=== PATIENT | female | born 1975 | race Caucasian/White ===

== ENCOUNTER 2021-05-17 09:11 | Day surgery (SDC) | payer MEDICAID ==
[2021-05-10 15:16] LABS: BASOPHILS # (AUTO) 0.1 X10'3 (0-0.2); BASOPHILS % (AUTO) 1.2 % (0-1); EOSINOPHILS # (AUTO) 0.4 X10'3 (0-0.9); EOSINOPHILS % (AUTO) 4.6 % (0-6); LYMPHOCYTES % (AUTO) 21.4 % (21-51); MEAN CORPUSCULAR HEMOGLOBIN 32.6 PG (27.0-31.0); MEAN CORPUSCULAR HGB CONC 34.4 g/dL (33.0-36.5); MEAN CORPUSCULAR VOLUME 94.9 FL (78-98); MONOCYTES # (AUTO) 0.6 X10'3 (0-0.9); MONOCYTES % (AUTO) 6.1 % (2-12); NEUTROPHILS # (AUTO) 6.3 X10'3 (1.8-7.7); NEUTROPHILS % (AUTO) 66.7 % (42-75); PRE OP HEMATOCRIT 45.2 % (35.0-45.0); PRE OP HEMOGLOBIN 15.5 g/dL (12.0-16.0); PRE OP PLATELET COUNT 246 X10'3 (140-440); RED BLOOD COUNT 4.76 X10'6 (4.20-5.60); RED CELL DISTRIBUTION WIDTH 13.3 % (11.5-14.5)
[2021-05-10 15:30] LABS: ALBUMIN 3.5 G/DL (3.4-5.0); ALBUMIN/GLOBULIN RATIO 0.9 (1.1-1.5); ALKALINE PHOSPHATASE 79 IU/L (46-116); BLOOD UREA NITROGEN 16 MG/DL (7-18); BUN/CREATININE RATIO 16.7 (6.6-38.0); CHLORIDE 103 MMOL/L (99-107); CREATININE 0.96 MG/DL (0.40-0.90); PRE OP ALT 43 U/L (30-65); PRE OP ANION GAP 10 (8-16); PRE OP AST 31 U/L (10-37); PRE OP BILIRUB, TOTAL 0.2 MG/DL (0.0-1.0); PRE OP GLUCOSE 91 MG/DL (70-104); PRE OP SODIUM 139 MMOL/L (135-145); TOTAL CARBON DIOXIDE 26.2 MMOL/L (24-32); TOTAL PROTEIN 7.4 G/DL (6.4-8.2); eGFR 62 ML/MIN
[2021-05-10 15:31] LABS: PRE OP POTASSIUM 4.1 MMOL/L (3.4-5.1)
[2021-05-10 15:33] LABS: CLARITY,URINE CLOUDY (Clear); COLOR,URINE YELLOW (Yellow); GLUCOSE, URINE NEGATIVE (Neg); KETONES,URINE NEGATIVE (Neg); LEUKOCYTE ESTERASE ,URINE MODERATE (Neg); NITRITES, URINE NEGATIVE (Neg); OCCULT BLOOD,URINE TRACE-INTACT (Neg); PROTEIN,URINE NEGATIVE (Neg); UROBILINOGEN,URINE 0.2 E.U/dL (0.2-1.0)
[2021-05-10 15:37] LABS: HCG SERUM QL NEGATIVE
[2021-05-10 15:41] LABS: UA COLLECTION TYPE CLN CATCH MIDSTREAM
[2021-05-10 15:42] LABS: HYALINE CASTS 0-3 /LPF (NEGATIVE); MUCUS STRANDS FEW /LPF (Neg); SQUAMOUS EPITHELIAL CELL,UR FEW /LPF (FEW)
[2021-05-10 15:43] LABS: BACTERIA,URINE 2+ /HPF (Neg); WBC,URINE 30-50 /HPF (0-4)
[2021-05-17] VITALS (15 sets, daily range): BP systolic 98–143; BP diastolic 59–108
[~2021-05-17] VITALS: Ht 177.8 cm; Wt 95.1 kg
[~2021-05-17 09:11] MED LIST: ARIP10TA57 PO; BUSP15TA7 PO; LISI10TA27 PO; OMEP-50 PO; PRAZ5CAP2 PO; TRAZ-256 PO; ceFOXitin 2GM-NS 100mL ADDvant 100 ML IV ONE; famotidine 20mg tablet PO ONE; ringers solution, lacted 1,000 ML IV SCH
[2021-05-17] MEDS ORDERED: ceFAZolin 1000mg inj ONE (09:15)
[2021-05-17] MEDS ORDERED: clindamycin phosphate 40gm vag cream ONE (09:15)
[2021-05-17] MEDS ORDERED: LIDOcaine 1% W/epiNEPHrine 1:100,000 20ml vial ONE (09:15)
[2021-05-17] MEDS ORDERED: BUPIVAcaine 0.5% inj/PF 30 ML ONE (09:16)
[2021-05-17] MEDS ORDERED: rocuronium 10mg/ml inj IV ONE (10:52)
[2021-05-17] MEDS ORDERED: propofol inj 20 ML IV ONE (10:52)
[2021-05-17] MEDS ORDERED: sevoflurane 250ml liquid IH ONE (10:53)
[2021-05-17] MEDS ORDERED: fentaNYL /PF 50mcg/ml 5ml ampule ONE (10:54)
[2021-05-17] MEDS ORDERED: midazolam 1 mg/ML 2ml injection ONE (10:54)
[2021-05-17] MEDS ORDERED: ondansetron/PF 4mg/2ml inj ONE (12:23)
[2021-05-17] MEDS ORDERED: dexamethasone sod phosphate 4mg/ml inj. ONE (12:23)
[2021-05-17] MEDS ORDERED: proCHLORperazine 10 MG/2 ml inj IV PRN (12:25)
[2021-05-17] MEDS ORDERED: ringers solution, lacted 1,000 ML IV SCH (12:25)
[2021-05-17] MEDS ORDERED: ketorolac trometh. 30mg/ml inj. IV ONE (12:25)
[2021-05-17] MEDS ORDERED: morphine 4 MG/ML inj SYRINge IV PRN (12:25)
[2021-05-17] MEDS ORDERED: meperidine/PF 25mg/ml syringe IV PRN ×3 (12:25)
[2021-05-17] MEDS ORDERED: ondansetron/PF 4mg/2ml inj IV PRN (12:25)
[2021-05-17] MEDS ORDERED: morphine 2 MG/ML inj. syringe IV PRN (12:25)
[2021-05-17] MEDS ORDERED: glycopyrrolate 0.2mg/ml inj ONE (12:54)
[2021-05-17] MEDS ORDERED: neostigmine methylsulfate 1 MG/ML 10ml vial ONE (12:54)
--- NOTE | 2021-05-17 13:08 | NUR ---
Received from OR via SURGICAL BED , accompanied by Anesthesiologist MARIA GUADALUPE and report given by Anesthesiolgist. PATIENT WITH 20G PIV IN LEFT HAND RUNNING LR AT 100. PATIENT WITH 3 LAP SITES TO ABDOME, THAT ARE ALL CDI AT THIS TIME. SONY PAD IN PLACE. 10L MASK ON WITH 100% SATURATIONSS AT THIS TIME.VSS. Addendum: 05/17/21 at 1316 by Filiberto Barlow RN, RN Amended: Links added.
[2021-05-17] MEDS ORDERED: oxyCODONE/APAP 5-325mg tablet PO PRN (13:10)
[2021-05-17] MEDS: oxyCODONE/APAP 5-325mg tablet PO PRN ×2 (13:55→18:00)
--- NOTE | 2021-05-17 18:38 | NUR ---
ALL DISCHARGE CRITERIA HAS BEEN MET. VSS, PAIN AT A TOLERABLE LEVEL, VOIDING AND ABLE TO SAFELY AMBULATE AND TRANSFER SELF. IV TAKEN OUT WITHOUT ANY COMPLICATIONS. ALL DISCHARGE INSTRUCTIONS COVERED WITH PATIENT AND ALL QUESTIONS ANSWERED. PATIENT TAKEN OUT VIA WHEELCHAIR TO PERSONAL VEHICLE WHERE FAMILY/FRIEND DROVE PATIENT HOME. ALL DC INSTRUCTIONS PROVIDED TO PATIENT AND BOYFRIEND. PATIENT HAD A SANCHEZ CATHETER PLACED BY PRUDENCE FROM SURGICAL FLOOR WITH ASSIST. PATIENT HAD A RETURN OF 700 CC URINE- CLEAR YELLOW. GIVEN DC INSTRUCTIONS ON SANCHEZ CATHETER CARE. WILL FOLLOW UP CALL PATIENT TOMORROW. Addendum: 05/17/21 at 1842 by Filiberto Barlow RN, RN Amended: Links added.
== END 2021-05-17 18:38 | disposition home or self-care (01) ==
LOC: PRE-OP 09:11
PROVIDERS: ATTEND Obstetrics & Gynecology
DX: N92.0 Excessive and frequent menstruation with regular cycle (principal); N39.3 Stress incontinence (female) (male); N83.202 Unspecified ovarian cyst, left side; N81.2 Incomplete uterovaginal prolapse; K21.9 Gastro-esophageal reflux disease without esophagitis; F41.9 Anxiety disorder, unspecified; F32.A Depression, unspecified; I10 Essential (primary) hypertension; B19.20 Unspecified viral hepatitis C without hepatic coma; E66.9 Obesity, unspecified; Z68.30 Body mass index [BMI] 30.0-30.9, adult; F17.210 Nicotine dependence, cigarettes, uncomplicated; F12.90 Cannabis use, unspecified, uncomplicated; F43.10 Post-traumatic stress disorder, unspecified; Z79.899 Other long term (current) drug therapy; Z20.822 Contact with and (suspected) exposure to COVID-19; Z88.8 Allergy status to other drugs, medicaments and biological substances; Z98.890 Other specified postprocedural states; Z98.51 Tubal ligation status; Z86.14 Personal history of Methicillin resistant Staphylococcus aureus infection
CPT/HCPCS: 36415; 57288; 58563; 58662; 71046; 80053; 81001; 82948; 84703; 85025; 86885; 86900; 86901; 87077; 87088; 87186; 93005; A6402; C1758; C1771; J0690; J0694; J1100; J1885; J2250; J2270; J2405; J2704; J2710; J3010; J3490; J7030; J7120; S0020; U0003; U0005; Z7506; Z7508; Z7512; A4355; A4618; A4649; A6258; A7000

== ENCOUNTER 2024-04-17 11:25 | Emergency (ER) | payer MEDICAID ==
[~2024-04-17] VITALS: Ht 175.3 cm; Wt 100.0 kg
[~2024-04-17 11:25] MED LIST changes: -ARIP10TA57 PO; +ARIP10TA87 PO; -OMEP-50 PO; +OMEP20CA16 PO; -ceFOXitin 2GM-NS 100mL ADDvant 100 ML IV ONE; -famotidine 20mg tablet PO ONE; -ringers solution, lacted 1,000 ML IV SCH
[2024-04-17 12:12] VITALS: BP 105/72; PULSE 78; RESP 16; O2SAT 97
[2024-04-17 15:42] LABS: BASOPHILS # (AUTO) 0.1 X10'3 (0-0.2); BASOPHILS % (AUTO) 1.3 % (0-1); EOSINOPHILS # (AUTO) 0.1 X10'3 (0-0.9); EOSINOPHILS % (AUTO) 1.5 % (0-6); HEMATOCRIT 43.4 % (35.0-45.0); HEMOGLOBIN 14.8 g/dl (12.0-16.0); LYMPHOCYTES % (AUTO) 20.1 % (21-51); MEAN CORPUSCULAR HEMOGLOBIN 32.9 PG (27.0-31.0); MEAN CORPUSCULAR HGB CONC 34.2 g/dL (33.0-36.5); MEAN CORPUSCULAR VOLUME 96.2 FL (78-98); MEAN PLATELET VOLUME 8.3 FL (7.4-10.4); MONOCYTES # (AUTO) 0.7 X10'3 (0-0.9); MONOCYTES % (AUTO) 6.9 % (2-12); NEUTROPHILS # (AUTO) 7.1 X10'3 (1.8-7.7); NEUTROPHILS % (AUTO) 70.2 % (42-75); PLATELET COUNT 280 X10'3 (140-440); RED BLOOD COUNT 4.51 X10'6 (4.20-5.60); RED CELL DISTRIBUTION WIDTH 14.1 % (11.5-14.5); WHITE BLOOD COUNT 10.1 X10'3 (4.5-11.0)
[2024-04-17 15:59] LABS: ALANINE AMINOTRANSFERASE 13 U/L (12-78); ALBUMIN 3.7 G/DL (3.4-5.0); ALBUMIN/GLOBULIN RATIO 0.9 (1.1-1.5); ALKALINE PHOSPHATASE 60 IU/L (46-116); ANION GAP 6 (8-16); ASPARTATE AMINO TRANSFERASE 10 U/L (10-37); BILIRUBIN,TOTAL 0.9 MG/DL (0.1-1.0); BLOOD UREA NITROGEN 18 MG/DL (7-18); BUN/CREATININE RATIO 16.1 (10.0-20.0); CALCIUM 9.5 MG/DL (8.5-10.1); CHLORIDE 106 MMOL/L (99-107); CREATININE 1.12 MG/DL (0.40-0.90); GLUCOSE 91 MG/DL (70-104); SODIUM 139 MMOL/L (135-145); TOTAL CARBON DIOXIDE 26.7 MMOL/L (24-32); TOTAL PROTEIN 7.6 G/DL (6.4-8.2); eCRCL 63 ML/MIN; eGFR 51 ML/MIN
[2024-04-17 16:03] LABS: POTASSIUM 4.2 MMOL/L (3.5-5.1)
[2024-04-17] MEDS ORDERED: iohexol 300mg/ml 100ml inj. ONE (16:10)
[2024-04-17] MEDS ORDERED: CLIN-97 PO (17:54)
[2024-04-17] MEDS: ketorolac trometh 15mg/ml vial 15 MG/ML ML IV ONE (18:20)
[2024-04-17 18:30] VITALS: TEMP 98.4
== END 2024-04-17 18:31 | disposition home or self-care (01) ==
LOC: ER 11:26
DX: L02.416 Cutaneous abscess of left lower limb (principal); Z88.8 Allergy status to other drugs, medicaments and biological substances
CPT/HCPCS: 36415; 72193; 80053; 85025; 99285; Q9967

== ENCOUNTER 2024-09-24 16:53 | Inpatient (IN) | payer MEDICAID ==
[~2024-09-24] VITALS: Ht 177.8 cm; Wt 100.3 kg
[~2024-09-24 16:53] MED LIST changes: +CLIN-97 PO
--- NOTE | 2024-09-24 17:24 | ELECTROCARDIOGRAPH REPORT ---
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 Chi Graham Measurements Intervals [place] Rate: 91 P: 65 WI: 185 QRS: 60 QRSD: 84 T: 42 QT: 349 QTc: 430 Interpretive Statements Sinus rhythm Probable left atrial enlargement Anteroseptal infarct, age indeterminate Electronically Signed On 09-24-2024 17:44:[address] Chi Graham Please click the below link to view image of tracing.
--- NOTE | 2024-09-24 17:25 | Physician Documentation ---
History of Present Illness ~ Chief Complaint: Abscess Stated Complaint: ABSCESS Time Seen by MD: 17:09 OK to notify your PCP?: Yes Source: patient, RN/MD, EMS, RN notes reviewed, EMS notes reviewed, old records Mode of Arrival: EMS Exam Limitations: no limitations HPI 48 year old female seen in bed 04 in the emergency department presents as a transfer from [place] via [facility] for complaints of an abscess. HPI from [place]: Ladonna is a 48 year old female with a history of hypertension, chronic methamphetamine use, bipolar disorder, and schizoaffective disorder and hepa titis C. 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 She presents this morning with complaints of medial thigh pain and swelling and thinks her infection is back. Symptoms onset yesterday, pain, swelling, fever, and headache. Denies any nausea., vomiting, diarrhea. She does endorse vaginal discharge. Denies any sexual activity for greater than one year. Denies any concerns for STDs. CT Pelvis w/ contrast: Impressions: Large abscess medial left thigh marking the increased in size since prior study. No evidence of abscess within the pelvis. CT Angio Chest: Impression: No CT evidence of pulmonary embolus. Minimal plueral effusions. Mild bibasilar subsegmental atelectasis. CT Head w/o contrast: Impressions: Unremarkable non enhanced computed tomograms of the head. Tetanus Within 5 Years: No Medication Reconciliation Allergies: Coded Allergies: codeine (Unverified Allergy, Mild, RASH, 09/24/24) carbamazepine (Verified Allergy, Unknown, RASH, 04/17/24) Scheduled Aripiprazole (Aripiprazole), 1 TAB PO DAILY, (Reported) Buspirone HCl (Buspirone HCl), 1 TAB PO BID, (Reported) Lisinopril (Lisinopril), 1 TAB PO DAILY, (Reported) Omeprazole (Omeprazole), 1 CAP PO DAILY, (Reported) Prazosin HCl (Prazosin HCl), 1 CAP PO HS, (Reported) Trazodone HCl (Trazodone HCl), 1 TAB PO HS, (Reported) Discontinued Medications Clindamycin HCL* (Clindamycin HCL*), 1 CAP PO Q6H Discontinued Reason: patient no longer taking Past Medical History Past Medical History: Migraine, Hypertension, Hepatitis C, UTI, Deep Vein Thro mbosis, Cellulitis, *PSYCH*, Depression, Schizophrenia Smoking Status: Current every day smoker Alcohol Use: Occasionally Drug Use: methamphetamine Review of Systems All Other Systems at this time: Reviewed and Negative ROS As stated above in the HPI, otherwise all systems are reviewed and negative. Physical Exam Vital Signs: RN Vital Signs have been reviewed: Yes, Temperature: 98.6, Source: Oral, Heart Rate: 92, Respiratory Rate: 16, BP: 130/85, Pulse Oximetry: 96, Weight: 90.910 Pulse Oximetry Reflects: adequate oxygenation Physical Exam General: The patient is well developed, well nourished, nontoxic appearing and is in no acute distress. Skin: [place], warm and dry with no rashes. HEENT: Head was normocephalic and atraumatic. Eyes - pupils equal, round, reactive to light and accommodation. Extraocular movements were intact. Conjunctivae were nonicteric. Ears - bilateral tympanic membranes were normal. The mouth and oropharynx were clear with moist mucous membranes. There were no pharyngeal exudates or erythema. Neck: Supple and nontender. There was no jugular venous distention, lymphadenopathy, thyromegaly or masses. Chest: Clear to auscultation bilaterally without wheezes, rales or rhonchi. No accessory muscle use. No dullness to percussion. Heart: Rate regular and rhythmic. S1, S2. No murmurs. Palpation of the chest wall was normal. No rubs or thrills. Abdomen: Soft, nontender and nondistended. Positive bowel sounds. No guarding or rebound. No hepatosplenomegaly or palpable masses. Extremities: Left thigh is red and hot. Post surgical reyes to left thigh. No cyanosis, clubbing or edema. The patient moves all extremities. Pulses were equal and symmetric. Neurologic: Cranial nerves II-XII were intact. Sensation was intact to light touch throughout. Motor strength was 5/5 in all four extremities. Deep tendon reflexes were intact in both upper and lower extremities. Psychologic: The patient was oriented to person, place and time. The patient demonstrated appropriate judgement and insight. Progress Progress Note 1730: A message was left with Dr. Cates about the patient. 1735: Dr. Duncan was informed on the patients case and kindly agreed to admission. Results/Orders Reviewed/noted all lab results: Yes Results/Orders Orders - DUNG DYER MD Electrocardiogram (09/24/24 17:13) Cbc/Diff (09/24/24 17:13) MG (09/24/24 17:13) Procalcitonin (09/24/24 17:13) Vancomycin/Ns 1 Gm Add-Serena (Vancomyc (09/24/24 17:15) BMP (09/24/24 17:13) Completed Orders - DUNG DYER MD Electrocardiogram (09/24/24 17:13) Normal Saline 1000ml (Sodium Chloride 10 (09/24/24 17:15) Medications Received in ER Medications (Trade) Dose Ordered Sig/Leia Route PRN Reason Start Time Stop Time Status Last Admin Dose Admin (sodium chloride 1000ml IV soln) 2,000 ml ONCE ONCE IV 09/24/24 17:15 09/24/24 17:16 DC 09/24/24 17:44 2,000 ML Vancomycin HCl 250 ml @ 166 mls/hr ONCE ONCE IV 09/24/24 17:15 09/24/24 18:45 09/24/24 17:44 166 MLS/HR Vital Signs 09/24/24 16:55 Temp 98.6 Pulse 92 Resp 16 B/P (MAP) 130/85 Pulse Ox 96 Laboratory Tests Test 09/24/24 17:50 Chemistry Comments Re-Evaluation Re-Evaluation : Re-Evaluation: Improved Progress Patient was seen and examined. Patient is given reassurance. The patient was transferred over [facility] area she has had multiple surgeries to the area. The initial etiology is unclear she does have a history of the methamphetamine abuse as mentioned prior denies any IV drug use. Patient's left thigh has multiple surgical scars. It is warm it is tender. She received a CAT scan that showed the 10 x 7.7 cm loculated mass. Patient's white count was elevated at 15 kidney functions are within normal limits at 0.8 patient received Rocephin and daptomycin. Upon arrival patient received vancomycin. Laboratory work was also redrawn. Including only one blood culture. Cultures were already obtained at the other facility. Patient later was then admitted to the hospitalist service for further workup and care. She states that she has been having fevers and feeling weak. She appears well otherwise. Continuous developmental writing instructor interpretation shows normal sinus rhythm heart rate 90s, no ectopy, normal, my interpretation. Pulse oximetry monitor interpretation shows normal oxygenation 96% room air, normal, my interpretation. 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 Dung Dyer Measurements Intervals [place] Rate: 91 P: 65 WI: 185 QRS: 60 QRSD: 84 T: 42 QT: 349 QTc: 430 Interpretive Statements Sinus rhythm Probable left atrial enlargement Anteroseptal infarct, age indeterminate Electronically Signed On 09-24-2024 17:44:[address] Dung Dyer Please click the below link to view image of tracing. EKG Date and Time:09/24/24 1723 Electronically Signed by: DUNG DYER MD Date and Time: 09/24/24 1744 Medical Decision Making Additional info obtained from: old records Differential Dx:Considerations: Include: Abscess, Bacteremia, Cellulitis, Gas gangrene, Lymphangitis, Osteromyelitis, Septicemia, Other Departure Time of Disposition: 17:35 Disposition: 09 ADMITTED INPATIENT Admitted to Inpatient Unit: yes, to hospitalist Admission Level of Care: Med/Surg with Tele Impression: Primary Impression: Abscess of left thigh Additional Impression: Sepsis Qualified Codes: A41.9 - Sepsis, unspecified organism Condition: Fair Referrals: NO PRIMARY CARE PROVIDER (PCP) Education Educated: Patient, Family Educated regarding: diagnosis, treatment, prognosis Critical Care Note Total Time (mins): 30 Critical Care Note The very real possibility of a deterioration of this patient's condition required the highest level of my preparedness for sudden, emergent intervention. I provided critical care services, which included medication orders, frequent reevaluations of the patient's condition and response to treatment, ordering and reviewing test results, and discussing the case with various consultants. Excludes time spent performing separately billable procedures. The critical care time associated with the care of the patient was 30 min Signature Scribe Signature: Scribed for Dung Dyer MD by Elida Sol . 09/24/24 17:40 Attestation: The note accurately reflects work and decisions made by me.Dung Dyer MD 09/24/24 17:25 DUNG DYER MD Sep 24, 2024 17:25 ELIDA BOOTH Sep 24, 2024 17:32
[2024-09-24] MEDS: normal saline 1000ML IV soln IV ONE (17:44)
[2024-09-24] MEDS: vancomycin/NS 1 GM ADD-VANTAGE 250 ML IV ONE (17:44)
[2024-09-24] MEDS ORDERED: HYDROcodone/acetaminophen 5mg/325mg tablet PO PRN (18:10)
[2024-09-24] MEDS ORDERED: magnesium sulf-water 4G/100mL 100 ML IV PRN (18:10)
[2024-09-24] MEDS ORDERED: magnesium sulf-water 2g/50mL 50 ML IV PRN (18:10)
[2024-09-24] MEDS ORDERED: magnesium Cl slow-release 64mg tablet PO PRN (18:10)
[2024-09-24] MEDS ORDERED: potassium Cl 40MEQ/1/2NS 520ml 520 ML IV PRN (18:10)
[2024-09-24] MEDS ORDERED: acetaminophen 325mg tablet PO PRN (18:10)
[2024-09-24] MEDS ORDERED: ondansetron/PF 4mg/2ml inj IV PRN (18:10)
--- NOTE | 2024-09-24 18:16 | HISTORY AND PHYSICAL ---
History & Physical Providers to CC ~ History of Present Illness Reason for Admit\Complaint: Left thigh abscess History of Present Illness 48 year old female trasferred from [facility] for evaluation of left thigh pain and swelling. Patient reports she has had multiple surgeries on this leg and it still keeps recurring . Patient is emotional and crying and states she is afraid of loosing her leg. Reports fever but did not check her temprature. Patient has a history of hypertension, chronic meth use, bipolar disorder and schizoaffective disorder. She denies having any vomiting but endorses nausea. Denies having any other symptoms including chest pain palpitations orthopnea PND ankle edema or any focal neurological signs. A CT scan of the pelvis with contrast done at [facility] revealed large abscess of the medial left thigh with maximum length of 11 cm and transfer dimension of 7.2 cm. There is multiloculated fluid collection. Dr. Vidal has been consulted by Dr. Dyer. Allergies: Coded Allergies: codeine (Unverified Allergy, Mild, RASH, 09/24/24) carbamazepine (Verified Allergy, Unknown, RASH, 04/17/24) Uncoded Allergies: ONIONS (Allergy, Intermediate, 09/25/24) Home Medications Home Medications Active Clindamycin HCL* (Clindamycin HCl) 300 Mg Capsule 1 Cap PO Q6H 10 Days Reported Buspirone HCl 15 Mg Tablet 1 Tab PO BID Omeprazole 20 Mg Capsule. 1 Cap PO DAILY Aripiprazole 10 Mg Tablet 1 Tab PO DAILY Lisinopril 10 Mg Tablet 1 Tab PO DAILY Prazosin HCl 5 Mg Capsule 1 Cap PO HS Trazodone HCl 100 Mg Tablet 1 Tab PO HS Past Medical History Past Medical History Hypertension Schizophrenia Bipolar disorder History of hep C Past Surgical History Surgical History Comment Patient reports she has had multiple surgeries on her left thigh Appendectomy Oophorectomy Tubal ligation Family History Family History: Patient reports no known family medical history. Past Social History Social History Comment Patient states she does not smoke drink or do any drugs Health Maintenance Health Maintenance Not current on her immunizations ROS ROS All other systems are reviewed and are negative except as mentioned in HPI Exam Vitals: Vital Signs Date Time Temp Pulse Resp B/P (MAP) Pulse Ox O2 Delivery O2 Flow Rate FiO2 09/24/24 16:55 98.6 92 16 130/85 96 General: Awake alert cooperative, emotional and crying HEENT: Normocephalic atraumatic pupils round reactive to light and accommodation, extraocular movements intact, sclera anicteric, conjunctiva pinkish, moist oral mucosa, no rash or ulcers. Neck: Supple, no JVD, trachea midline, no lymphadenopathy. Chest: Clear to auscultation, no wheezes crackles or rhonchi. Cardiovascular: Regular rate rhythm, no murmur gallop or rub. Abdomen: Soft nontender, no organomegaly. Extremities: No cyanosis clubbing , edema induration and tenderness of the left medial thigh noted Central Nervous System: Nonfocal. Moves all four extremities Musculoskeletal: No joint swelling or deformities noted. Skin: Erythema left leg ,well healed scar on the medical thigh Diagnostic Data Diagnostic Data: Reviewed CT report from [facility] Additional Plan 48 years old female with history of recurrent left thigh infection and prior multiple surgeries, presented initially to [facility] for increasing pain and swelling of the left thigh. * Left thigh abscess : Surgery has been consulted. Start on broad-spectrum IV antibiotics. * HTN: Patient is on lisinopril 20 mg and prazosin 1 mg p.o. daily which will be continued * Schizophrenia/bipolar disorder: Continue aripiprazole and buspirone * History of GERD: Continue omeprazole * Insomnia/depression: Continue trazodone * History of hep C: Review home medications and if patient is still on it we will continue sofosbuvir-velpatasvir. * Code status: She wishes to be full code * Expected length of stay - 3-4 days. Date of Service: Sep 24, 2024 Billing Provider: GABRIELLA KENNEDY MD Common Visit Codes: 65590-QTIOTRD INP/OBS CARE (HIGH) GABRIELLA KENNEDY MD Sep 24, 2024 18:16
[2024-09-24 18:35] LABS: ALBUMIN 2.7 G/DL (3.4-5.0); ANION GAP 9 (8-16); BLOOD UREA NITROGEN 4 MG/DL (7-18); CALCIUM 8.7 MG/DL (8.5-10.1); CHLORIDE 104 MMOL/L (99-107); GLUCOSE 104 MG/DL (70-104); MAGNESIUM 1.6 MG/DL (1.5-2.4); SODIUM 138 MMOL/L (135-145); TOTAL CARBON DIOXIDE 24.6 MMOL/L (24-32); eCRCL 91 ML/MIN; eGFR 76 ML/MIN
[2024-09-24 18:38] LABS: POTASSIUM 3.5 MMOL/L (3.5-5.1)
[2024-09-24] MEDS: HYDROmorphone/PF 0.2 MG/ML SYRINGE IV PRN (19:21)
[2024-09-24 20:00] LABS: BASOPHILS # (AUTO) 0.1 X10'3 (0-0.2); BASOPHILS % (AUTO) 0.4 % (0-1); EOSINOPHILS # (AUTO) 0.1 X10'3 (0-0.9); EOSINOPHILS % (AUTO) 0.4 % (0-6); HEMATOCRIT 36.8 % (35.0-45.0); HEMOGLOBIN 12.5 g/dl (12.0-16.0); LYMPHOCYTES # (AUTO) 1.4 X10'3 (1.1-4.8); MEAN CORPUSCULAR VOLUME 91.3 FL (78-98); MEAN PLATELET VOLUME 8.6 FL (7.4-10.4); MONOCYTES # (AUTO) 1.2 X10'3 (0-0.9); NEUTROPHILS # (AUTO) 11.1 X10'3 (1.8-7.7); NEUTROPHILS % (AUTO) 80.2 % (42-75); PLATELET COUNT 228 X10'3 (140-440); RED BLOOD COUNT 4.03 X10'6 (4.20-5.60); RED CELL DISTRIBUTION WIDTH 14.5 % (11.5-14.5); WHITE BLOOD COUNT 13.8 X10'3 (4.5-11.0)
[2024-09-24] MEDS: K and/or MAG REPLACEMENT MC SCH (20:00)
[2024-09-24 20:17] LABS: APTT 27 SECONDS (22-32); INR 1.1 INR; PROTHROMBIN TIME 10.9 SECONDS (9.0-12.0)
[2024-09-24] MEDS: normal saline 1000ml 1,000 ML IV SCH (22:11)
[2024-09-24 22:30] VITALS: BP 129/82; RESP 20; TEMP 99.7; O2SAT 94
[2024-09-24] MEDS: HYDROcodone/acetaminophen 10/325mg tab PO PRN (22:51)
[2024-09-24 23:30] VITALS: RESP 20; O2SAT 98
[2024-09-25] VITALS (7 sets, daily range): BP systolic 113–145; BP diastolic 58–89; PULSE 93–108; RESP 16–20; TEMP 98–99.6; O2SAT 93–98
[2024-09-25] MEDS: piperacillin/tazo 3.375gm/50ml 50 ML IV ONE (00:12)
[2024-09-25] MEDS: piperacillin/tazo 3.375gm/50ml 50 ML IV SCH (00:26)
[2024-09-25] MEDS: HYDROmorphone inj. 0.5 MG/0.5 ML DISP.SYRIN IV PRN (03:32)
[2024-09-25 05:25] LABS: BASOPHILS % (AUTO) 0.2 % (0-1); EOSINOPHILS % (AUTO) 0.3 % (0-6); HEMOGLOBIN 11.8 g/dl (12.0-16.0); LYMPHOCYTES # (AUTO) 1.1 X10'3 (1.1-4.8); LYMPHOCYTES % (AUTO) 8.4 % (21-51); MEAN CORPUSCULAR HEMOGLOBIN 30.6 PG (27.0-31.0); MEAN CORPUSCULAR HGB CONC 33.7 g/dL (33.0-36.5); MEAN CORPUSCULAR VOLUME 90.9 FL (78-98); MEAN PLATELET VOLUME 8.3 FL (7.4-10.4); MONOCYTES # (AUTO) 1.2 X10'3 (0-0.9); MONOCYTES % (AUTO) 9.1 % (2-12); NEUTROPHILS # (AUTO) 11.1 X10'3 (1.8-7.7); PLATELET COUNT 209 X10'3 (140-440); RED BLOOD COUNT 3.85 X10'6 (4.20-5.60); WHITE BLOOD COUNT 13.5 X10'3 (4.5-11.0)
[2024-09-25] MEDS: potassium Cl 20 mEq SR tablet PO STA (06:05)
[2024-09-25] MEDS: VANCOmycin 1250MG/NS 250ml Bag 250 ML IV SCH (06:50)
[2024-09-25] MEDS: lisinopril 10 MG tablet PO SCH (07:56)
[2024-09-25] MEDS: aripiprazole 10MG tablet PO SCH (07:56)
[2024-09-25] MEDS: busPIRone 15mg tablet PO SCH (07:56)
[2024-09-25] MEDS: pantoprazole 40mg Tablet.DR PO SCH (07:56)
[2024-09-25 08:52] LABS: ALBUMIN 2.5 G/DL (3.4-5.0); ANION GAP 10 (8-16); BLOOD UREA NITROGEN 4 MG/DL (7-18); BUN/CREATININE RATIO 5.6 (10.0-20.0); CALCIUM 8.6 MG/DL (8.5-10.1); CHLORIDE 103 MMOL/L (99-107); CREATININE 0.71 MG/DL (0.40-0.90); GLUCOSE 90 MG/DL (70-104); MAGNESIUM 1.5 MG/DL (1.5-2.4); SODIUM 138 MMOL/L (135-145); TOTAL CARBON DIOXIDE 24.9 MMOL/L (24-32); eCRCL 103 ML/MIN; eGFR 87 ML/MIN
[2024-09-25 08:59] LABS: POTASSIUM 2.9 MMOL/L (3.5-5.1)
--- NOTE | 2024-09-25 09:05 | PROGRESS NOTE ---
Progress Note ID Providers to CC ~ Progress Note Progress Note: pt needs drain per TRAE RONQUILLO MD Sep 25, 2024 09:05
[2024-09-25] MEDS: potassium Cl 20 mEq SR tablet PO PRN (10:31)
--- NOTE | 2024-09-25 17:37 | PROGRESS NOTE ---
Daily Progress Note Providers to CC ~ Antibiotic Timeout Antibiotic Ordered?: Yes Subjective No new complaints, continues to have pain Objective Vital Signs Date Time Temp Pulse Resp B/P (MAP) Pulse Ox O2 Delivery O2 Flow Rate FiO2 09/25/24 14:05 16 09/25/24 10:10 98.1 105 113/86 (95) 95 Room Air Result Diagram: 09/25/24 0505 09/25/24 0800 Awake alert cooperative in no acute distress HEENT normocephalic atraumatic extraocular movements are intact Neck supple, no JVD Chest: Clear to auscultation, no wheezes or rhonchi Heart regular rate rhythm, no murmur or gallop rub Abdomen is soft nontender no organomegaly Extremities no cyanosis clubbing, edema of the left medial thigh with tenderness and induration noted. Neuro exam nonfocal Coagulation Studies Laboratory Tests Test 09/24/24 19:45 Prothrombin Time 10.9 SECONDS (9.0-12.0) INR International Normalized Ratio 1.1 INR Activated Partial Thromboplast Time 27 SECONDS (22-32) Coagulation Comments Other Results Medications reviewed Problem\Assessment\Plan 48 years old female with history of recurrent left thigh infection and prior multiple surgeries, presented initially to [facility] for increasing pain and swelling of the left thigh. * Left thigh abscess : Surgery has been consulted. Dr. Vidal recommneds IR consult, continue IV antibiotics. Requested RN to initiate tranfer to [facility]. Per my discussion with the rehabilitation case coordinator, since the IR department is closed on the weekends at [facility], this will be initiated in a.m.. * HTN: Continue lisinopril 20 mg and prazosin 1 mg p.o. * Schizophrenia/bipolar disorder: Continue aripiprazole and buspirone * History of GERD: Continue omeprazole * Insomnia/depression: Continue trazodone * History of hep C: Has been treated with sofosbuvir-velpatasvir. Deferred to outpatient follow up. * Code status: She wishes to be full code * Expected length of stay 2-3 days Date of Service: Sep 26, 2024 Billing Provider: GABRIELLA KENNEDY MD Common Visit Codes: 97517-KRPLPSCINA INP/OBS CARE(HIGH) GABRIELLA KENNEDY MD Sep 25, 2024 17:36
[2024-09-25] MEDS: traZODone 50mg tablet PO SCH (19:41)
[2024-09-25] MEDS: prazosin 5mg capsule PO SCH (19:41)
[2024-09-26] MEDS: VANCOMYCIN LEVEL IV ONE (05:57)
[2024-09-26 06:00] VITALS: BP 94/73; PULSE 110; RESP 19; TEMP 98.5; O2SAT 94
[2024-09-26 06:32] LABS: BASOPHILS % (AUTO) 0.2 % (0-1); EOSINOPHILS % (AUTO) 0.3 % (0-6); HEMATOCRIT 33.4 % (35.0-45.0); HEMOGLOBIN 11.3 g/dl (12.0-16.0); LYMPHOCYTES # (AUTO) 0.8 X10'3 (1.1-4.8); LYMPHOCYTES % (AUTO) 5.9 % (21-51); MEAN CORPUSCULAR HEMOGLOBIN 30.5 PG (27.0-31.0); MEAN CORPUSCULAR HGB CONC 33.7 g/dL (33.0-36.5); MEAN CORPUSCULAR VOLUME 90.4 FL (78-98); MEAN PLATELET VOLUME 8.2 FL (7.4-10.4); MONOCYTES # (AUTO) 1.3 X10'3 (0-0.9); MONOCYTES % (AUTO) 9.2 % (2-12); NEUTROPHILS # (AUTO) 12.1 X10'3 (1.8-7.7); NEUTROPHILS % (AUTO) 84.4 % (42-75); PLATELET COUNT 214 X10'3 (140-440); RED CELL DISTRIBUTION WIDTH 14.4 % (11.5-14.5); WHITE BLOOD COUNT 14.3 X10'3 (4.5-11.0)
[2024-09-26 06:50] LABS: ALBUMIN 2.3 G/DL (3.4-5.0); ANION GAP 11 (8-16); BLOOD UREA NITROGEN 3 MG/DL (7-18); BUN/CREATININE RATIO 3.5 (10.0-20.0); CALCIUM 8.6 MG/DL (8.5-10.1); CHLORIDE 102 MMOL/L (99-107); CREATININE 0.85 MG/DL (0.40-0.90); GLUCOSE 119 MG/DL (70-104); MAGNESIUM 1.5 MG/DL (1.5-2.4); POTASSIUM 3.5 MMOL/L (3.5-5.1); SODIUM 136 MMOL/L (135-145); TOTAL CARBON DIOXIDE 23.1 MMOL/L (24-32); VANCOMYCIN,TROUGH 8.4 ug/mL (10.0-20.0); eCRCL 86 ML/MIN; eGFR 71 ML/MIN
[2024-09-26 07:20] VITALS: RESP 19; O2SAT 94
[2024-09-26 10:00] VITALS: BP 109/59; PULSE 70; RESP 19; TEMP 98.1; O2SAT 93
[2024-09-26] MEDS ORDERED: vancomycin/NS 1 GM ADD-VANTAGE 250 ML IV SCH (15:00)
[2024-09-26] MEDS ORDERED: SOFO1TAB3 PO (17:24)
[2024-09-26] MEDS: vancomycin/NS 1 GM ADD-VANTAGE 250 ML IV SCH (17:35)
[2024-09-26 18:00] VITALS: BP 138/88; PULSE 108; RESP 15; TEMP 98.9; O2SAT 93
[2024-09-26] MEDS: aripiprazole 10MG tablet PO SCH (21:08)
[2024-09-26 22:00] VITALS: BP 145/74; PULSE 110; RESP 18; TEMP 98.2; O2SAT 96
[2024-09-27 06:00] VITALS: BP 119/75; PULSE 114; RESP 18; TEMP 100.4; O2SAT 93
[2024-09-27 06:08] LABS: BASOPHILS % (AUTO) 0.3 % (0-1); EOSINOPHILS % (AUTO) 0.3 % (0-6); HEMATOCRIT 30.9 % (35.0-45.0); HEMOGLOBIN 10.5 g/dl (12.0-16.0); LYMPHOCYTES # (AUTO) 0.9 X10'3 (1.1-4.8); LYMPHOCYTES % (AUTO) 6.8 % (21-51); MEAN CORPUSCULAR HGB CONC 34.1 g/dL (33.0-36.5); MEAN CORPUSCULAR VOLUME 90.9 FL (78-98); MEAN PLATELET VOLUME 8.4 FL (7.4-10.4); MONOCYTES # (AUTO) 1.1 X10'3 (0-0.9); MONOCYTES % (AUTO) 8.4 % (2-12); NEUTROPHILS # (AUTO) 11.3 X10'3 (1.8-7.7); NEUTROPHILS % (AUTO) 84.2 % (42-75); PLATELET COUNT 215 X10'3 (140-440); RED BLOOD COUNT 3.39 X10'6 (4.20-5.60); WHITE BLOOD COUNT 13.4 X10'3 (4.5-11.0)
[2024-09-27 06:19] LABS: ANION GAP 11 (8-16); BLOOD UREA NITROGEN 3 MG/DL (7-18); BUN/CREATININE RATIO 3.9 (10.0-20.0); CALCIUM 8.7 MG/DL (8.5-10.1); CHLORIDE 105 MMOL/L (99-107); CREATININE 0.76 MG/DL (0.40-0.90); GLUCOSE 103 MG/DL (70-104); MAGNESIUM 1.6 MG/DL (1.5-2.4); POTASSIUM 3.1 MMOL/L (3.5-5.1); SODIUM 141 MMOL/L (135-145); TOTAL CARBON DIOXIDE 25.1 MMOL/L (24-32); eCRCL 96 ML/MIN; eGFR 81 ML/MIN
[2024-09-27 08:10] VITALS: RESP 18; O2SAT 93
[2024-09-27] MEDS: potassium Cl 20 mEq SR tablet PO PRN ×2 (08:26→21:20)
[2024-09-27 10:00] VITALS: BP 105/65; PULSE 98; RESP 16; TEMP 97.9; O2SAT 95
[2024-09-27] MEDS: piperacillin/tazo 3.375gm/50ml 50 ML IV SCH (12:43)
[2024-09-27] MEDS: VANCOMYCIN LEVEL IV ONE (16:30)
[2024-09-27 17:00] VITALS: BP 134/76; PULSE 97; RESP 19; TEMP 97.3; O2SAT 95
--- NOTE | 2024-09-27 18:50 | PROGRESS NOTE ---
Daily Progress Note Providers to CC ~ Antibiotic Timeout Antibiotic Ordered?: Yes Subjective Patient was seen in her room in presence of nursing staff Vidhya patient was not happy that she is getting vancomycin instead of ampicillin. She mentioned in past provider told her to take ampicillin for this kind of abscess. Her old record requested. As per Vidhya patient needs hepatitis-C medication prescription. Reviewed patient's old records and no culture reports available . Objective Vital Signs Date Time Temp Pulse Resp B/P (MAP) Pulse Ox O2 Delivery O2 Flow Rate FiO2 09/27/24 10:00 97.9 98 16 105/65 (78) 95 Room Air Result Diagram: 09/27/24 0515 09/27/24 0515 Coagulation Studies Laboratory Tests Test 09/24/24 19:45 Prothrombin Time 10.9 SECONDS (9.0-12.0) INR International Normalized Ratio 1.1 INR Activated Partial Thromboplast Time 27 SECONDS (22-32) Coagulation Comments Problem\Assessment\Plan 48 years old female with history of recurrent left thigh infection and prior multiple surgeries, presented initially to [facility] for increasing pain and swelling of the left thigh. * Left thigh abscess : Surgery has been consulted. Dr. Vidal recommneds IR consult, continue IV antibiotics. Left thigh abscess drainage done by IR on coming Friday * HTN: Continue lisinopril 20 mg and prazosin 1 mg p.o. * Schizophrenia/bipolar disorder: Continue aripiprazole and buspirone * History of GERD: Continue omeprazole * Insomnia/depression: Continue trazodone * History of hep C: Has been treated with sofosbuvir-velpatasvir. Deferred to outpatient follow up. * Code status: She wishes to be full code * Expected length of stay 2-3 days * Hypokalemia we will do the replacement of potassium as per protocol Patient's current condition is guarded we will continue to follow patient in AM . Date of Service: Sep 27, 2024 Billing Provider: STEPHAN PALM MD Common Visit Codes: [id number] INP/OBS CARE(HIGH) STEPHAN PALM MD Sep 27, 2024 18:50
[2024-09-27] MEDS: polyethylene glycol 3350 17gm powd pack PO SCH (20:15)
[2024-09-27] MEDS ORDERED: magnesium sulf-water 4G/100mL 100 ML IV PRN (20:35)
[2024-09-27] MEDS ORDERED: potassium Cl 40MEQ/1/2NS 520ml 520 ML IV PRN (20:35)
[2024-09-27] MEDS ORDERED: potassium Cl 20 mEq SR tablet PO PRN (20:35)
[2024-09-27] MEDS ORDERED: magnesium Cl slow-release 64mg tablet PO PRN (20:35)
[2024-09-27] MEDS ORDERED: magnesium sulf-water 2g/50mL 50 ML IV PRN (20:35)
[2024-09-27 22:00] VITALS: BP 124/72; PULSE 111; RESP 16; TEMP 97.9; O2SAT 94
[2024-09-28 05:22] LABS: BASOPHILS % (AUTO) 0.3 % (0-1); EOSINOPHILS # (AUTO) 0.1 X10'3 (0-0.9); EOSINOPHILS % (AUTO) 0.9 % (0-6); HEMATOCRIT 32.2 % (35.0-45.0); HEMOGLOBIN 10.7 g/dl (12.0-16.0); LYMPHOCYTES # (AUTO) 0.8 X10'3 (1.1-4.8); MEAN CORPUSCULAR HEMOGLOBIN 30.6 PG (27.0-31.0); MEAN CORPUSCULAR HGB CONC 33.3 g/dL (33.0-36.5); MEAN PLATELET VOLUME 8.1 FL (7.4-10.4); MONOCYTES # (AUTO) 1.1 X10'3 (0-0.9); NEUTROPHILS # (AUTO) 11.6 X10'3 (1.8-7.7); NEUTROPHILS % (AUTO) 84.8 % (42-75); PLATELET COUNT 241 X10'3 (140-440); RED CELL DISTRIBUTION WIDTH 14.9 % (11.5-14.5); WHITE BLOOD COUNT 13.7 X10'3 (4.5-11.0)
[2024-09-28 05:52] LABS: ANION GAP 10 (8-16); BLOOD UREA NITROGEN 4 MG/DL (7-18); BUN/CREATININE RATIO 4.6 (10.0-20.0); CALCIUM 8.6 MG/DL (8.5-10.1); CHLORIDE 105 MMOL/L (99-107); CREATININE 0.87 MG/DL (0.40-0.90); GLUCOSE 125 MG/DL (70-104); MAGNESIUM 1.6 MG/DL (1.5-2.4); POTASSIUM 3.4 MMOL/L (3.5-5.1); SODIUM 141 MMOL/L (135-145); TOTAL CARBON DIOXIDE 25.8 MMOL/L (24-32); eCRCL 84 ML/MIN; eGFR 69 ML/MIN
[2024-09-28 06:00] VITALS: BP 145/71; PULSE 100; RESP 16; TEMP 98.1; O2SAT 96
[2024-09-28] MEDS: diazepam inj 5 MG/ML inj. IV ONE (07:31)
[2024-09-28 08:00] VITALS: RESP 16; O2SAT 96
[2024-09-28] MEDS: VELPATASVIR PO SCH (08:00)
[2024-09-28] MEDS: SOFOSBUVIR PO SCH (08:00)
[2024-09-28 10:00] VITALS: BP 106/77; PULSE 109; RESP 16; TEMP 98.3; O2SAT 97
[2024-09-28] MEDS: K and/or MAG REPLACEMENT MC SCH (10:57)
[2024-09-28] MEDS: VANCOmycin 1250MG/NS 250ml Bag 250 ML IV SCH (16:38)
[2024-09-28 18:00] VITALS: BP 141/70; PULSE 99; RESP 16; TEMP 98.7; O2SAT 98
--- NOTE | 2024-09-28 18:49 | PROGRESS NOTE ---
Daily Progress Note Providers to CC ~ Antibiotic Timeout Antibiotic Ordered?: Yes Subjective As per nursing staff marlon patient was very agitated and yelling and shouting early this morning to the point that three server security administrator had to come up to control the situation. Valium ordered for anxiety and agitation. When I evaluated the patient she was getting her IV line change in cooperated during physical exam Objective Vital Signs Date Time Temp Pulse Resp B/P (MAP) Pulse Ox O2 Delivery O2 Flow Rate FiO2 09/28/24 18:23 15 09/28/24 10:00 98.3 109 106/77 (87) 97 Room Air Result Diagram: 09/28/24 0506 09/28/24 0506 General-patient not in any acute distress, alert awake oriented, chronically ill-appearing, HEENT-atraumatic normocephalic, neck supple without elevated JVD, no thyromegaly or carotid bruit. No lymphadenopathy bilaterally. Eyes-no icterus or pallor seen in eyes Chest-clear to auscultation bilaterally, breathing nonlabored no tachypnea, no wheezing, no crepitation, no crackles. Heart-S1-S2 normal, regular heart rate no murmur Abdomen bowel sounds positive on auscultation, soft nondistended nontender no guarding, no rigidity Skin - edema induration and tenderness of the left medial thigh noted, signs of recent surgery noticed over medial side of left thigh Neurology-grossly intact, nonfocal alert awake oriented Extremity- no pedal edema able to move all 4 extremities Psychiatry - patient is not confused or agitated when I saw her today. cooperated during physical examination Coagulation Studies Laboratory Tests Test 09/24/24 19:45 Prothrombin Time 10.9 SECONDS (9.0-12.0) INR International Normalized Ratio 1.1 INR Activated Partial Thromboplast Time 27 SECONDS (22-32) Coagulation Comments Problem\Assessment\Plan 48 years old female with history of recurrent left thigh infection and prior multiple surgeries, presented initially to [facility] for increasing pain and swelling of the left thigh. * Left thigh abscess : Surgery has been consulted. Dr. Vidal recommneds IR consult, continue IV antibiotics. Left thigh abscess drainage done by IR on coming Friday * HTN: Continue lisinopril 20 mg and prazosin 1 mg p.o. * Schizophrenia/bipolar disorder: Continue aripiprazole and buspirone * History of GERD: Continue omeprazole * Insomnia/depression: Continue trazodone * History of hep C: Has been treated with sofosbuvir-velpatasvir. Deferred to outpatient follow up. * Code status: She wishes to be full code * Expected length of stay 2-3 days * Hypokalemia we will do the replacement of potassium as per protocol * Agitation/anxiety-Valium started today Patient's current condition is guarded we will continue to follow patient in AM . Date of Service: Sep 28, 2024 Billing Provider: STEPHAN PALM MD Common Visit Codes: [id number] INP/OBS CARE(HIGH) STEPHAN PALM MD Sep 28, 2024 18:49
[2024-09-28 22:00] VITALS: BP 127/64; PULSE 98; RESP 16; TEMP 98.2; O2SAT 94
[2024-09-29 05:05] LABS: BASOPHILS % (AUTO) 0.2 % (0-1); EOSINOPHILS # (AUTO) 0.1 X10'3 (0-0.9); HEMATOCRIT 27.9 % (35.0-45.0); HEMOGLOBIN 9.6 g/dl (12.0-16.0); LYMPHOCYTES # (AUTO) 0.8 X10'3 (1.1-4.8); MEAN CORPUSCULAR HEMOGLOBIN 31.1 PG (27.0-31.0); MEAN CORPUSCULAR HGB CONC 34.2 g/dL (33.0-36.5); MEAN CORPUSCULAR VOLUME 90.9 FL (78-98); MEAN PLATELET VOLUME 8.3 FL (7.4-10.4); MONOCYTES # (AUTO) 1.1 X10'3 (0-0.9); MONOCYTES % (AUTO) 7.6 % (2-12); NEUTROPHILS % (AUTO) 85.2 % (42-75); PLATELET COUNT 261 X10'3 (140-440); RED BLOOD COUNT 3.07 X10'6 (4.20-5.60); WHITE BLOOD COUNT 14.1 X10'3 (4.5-11.0)
[2024-09-29 05:27] LABS: ALBUMIN 1.7 G/DL (3.4-5.0); ANION GAP 9 (8-16); BLOOD UREA NITROGEN 3 MG/DL (7-18); BUN/CREATININE RATIO 3.4 (10.0-20.0); CALCIUM 8.3 MG/DL (8.5-10.1); CHLORIDE 106 MMOL/L (99-107); CREATININE 0.87 MG/DL (0.40-0.90); GLUCOSE 106 MG/DL (70-104); POTASSIUM 3.1 MMOL/L (3.5-5.1); SODIUM 141 MMOL/L (135-145); TOTAL CARBON DIOXIDE 25.8 MMOL/L (24-32); eCRCL 84 ML/MIN; eGFR 69 ML/MIN
[2024-09-29 08:10] VITALS: RESP 20
[2024-09-29 09:00] VITALS: BP 138/76; PULSE 108; RESP 18; TEMP 99.1; O2SAT 96
[2024-09-29] MEDS ORDERED: BUPIVAcaine 2.5mg/ml inj 50ml vial (contains preservative) ONE (09:04)
[2024-09-29] MEDS: lactose-reduced food (Ensure Enlive) - 237ml bottle PO SCH (13:00)
[2024-09-29] MEDS: VANCOMYCIN LEVEL IV ONE (17:58)
[2024-09-29 18:00] VITALS: BP 132/69; PULSE 111; RESP 16; TEMP 98.4; O2SAT 96
[2024-09-29] MEDS: VANCOMYCIN/WATER FOR INJ (PEG) 1.5GM/300 ML IVPB IV SCH (20:19)
--- NOTE | 2024-09-29 20:25 | PROGRESS NOTE ---
Daily Progress Note Providers to CC ~ Antibiotic Timeout Antibiotic Ordered?: Yes Subjective As per nursing staff Emily AGAIN patient was very agitated and yelling and shouting early this morning to the point that three armed security guard had to come up to control the situation. Valium already ordered for anxiety and agitation. Psychiatry consult requested order placed. Objective Vital Signs Date Time Temp Pulse Resp B/P (MAP) Pulse Ox O2 Delivery O2 Flow Rate FiO2 09/29/24 20:06 16 09/29/24 09:00 99.1 108 138/76 (96) 96 Room Air Result Diagram: 09/29/240 09/29/24 0410 General-patient not in any acute distress, alert awake oriented, chronically ill-appearing, HEENT-atraumatic normocephalic, neck supple without elevated JVD, no thyromegaly or carotid bruit. No lymphadenopathy bilaterally. Eyes-no icterus or pallor seen in eyes Chest-clear to auscultation bilaterally, breathing nonlabored no tachypnea, no wheezing, no crepitation, no crackles. Heart-S1-S2 normal, regular heart rate no murmur Abdomen bowel sounds positive on auscultation, soft nondistended nontender no guarding, no rigidity Skin - edema induration and tenderness of the left medial thigh noted, signs of recent surgery noticed over medial side of left thigh Neurology-grossly intact, nonfocal alert awake oriented Extremity- no pedal edema able to move all 4 extremities Psychiatry - patient is not confused or agitated when I saw her today. cooperated during physical examination Coagulation Studies Laboratory Tests Test 09/24/24 19:45 Prothrombin Time 10.9 SECONDS (9.0-12.0) INR International Normalized Ratio 1.1 INR Activated Partial Thromboplast Time 27 SECONDS (22-32) Coagulation Comments Problem\Assessment\Plan 48 years old female with history of recurrent left thigh infection and prior multiple surgeries, presented initially to [facility] for increasing pain and swelling of the left thigh. * Left thigh abscess : Surgery has been consulted. Dr. Vidal recommneds IR consult, continue IV antibiotics. Left thigh abscess drainage done by IR on coming Friday. Dose of pain medication increased today * HTN: Continue lisinopril 20 mg and prazosin 1 mg p.o. * Schizophrenia/bipolar disorder: Continue aripiprazole and buspirone * History of GERD: Continue omeprazole * Insomnia/depression: Continue trazodone * History of hep C: Has been treated with sofosbuvir-velpatasvir. Deferred to outpatient follow up. * Code status: She wishes to be full code * Expected length of stay 2-3 days * Hypokalemia we will do the replacement of potassium as per protocol * Agitation/anxiety-Valium started As per nursing staff Emily AGAIN patient was very agitated and yelling and shouting early this morning to the point that three armed security guard had to come up to control the situation. Valium already ordered for anxiety and agitation. Psychiatry consult requested order placed. Patient's current condition is guarded we will continue to follow patient in AM from hospitalist team . Date of Service: Sep 29, 2024 Billing Provider: STEPHAN PALM MD Common Visit Codes: 53713-[id number] INP/OBS CARE(HIGH) STEPHAN PALM MD Sep 29, 2024 20:25
[2024-09-29 22:00] VITALS: BP 127/61; PULSE 102; RESP 20; TEMP 98.4; O2SAT 95
[2024-09-30] VITALS (7 sets, daily range): BP systolic 116–138; BP diastolic 60–96; PULSE 64–93; RESP 16–17; TEMP 97.1–98.5; O2SAT 93–97
[2024-09-30 09:03] LABS: BASOPHILS % (AUTO) 0.3 % (0-1); EOSINOPHILS # (AUTO) 0.2 X10'3 (0-0.9); EOSINOPHILS % (AUTO) 1.7 % (0-6); HEMATOCRIT 29.8 % (35.0-45.0); HEMOGLOBIN 10.1 g/dl (12.0-16.0); LYMPHOCYTES # (AUTO) 0.8 X10'3 (1.1-4.8); LYMPHOCYTES % (AUTO) 7.1 % (21-51); MEAN CORPUSCULAR HEMOGLOBIN 30.9 PG (27.0-31.0); MEAN CORPUSCULAR VOLUME 91.1 FL (78-98); MONOCYTES # (AUTO) 0.7 X10'3 (0-0.9); MONOCYTES % (AUTO) 6.7 % (2-12); NEUTROPHILS # (AUTO) 9.3 X10'3 (1.8-7.7); NEUTROPHILS % (AUTO) 84.2 % (42-75); PLATELET COUNT 301 X10'3 (140-440); RED BLOOD COUNT 3.27 X10'6 (4.20-5.60); RED CELL DISTRIBUTION WIDTH 15.4 % (11.5-14.5); WHITE BLOOD COUNT 11.1 X10'3 (4.5-11.0)
[2024-09-30 09:21] LABS: ALANINE AMINOTRANSFERASE 19 U/L (12-78); ALBUMIN 1.8 G/DL (3.4-5.0); ALBUMIN/GLOBULIN RATIO 0.5 (1.1-1.5); ALKALINE PHOSPHATASE 65 IU/L (46-116); ANION GAP 8 (8-16); ASPARTATE AMINO TRANSFERASE 17 U/L (10-37); BILIRUBIN,TOTAL 0.4 MG/DL (0.1-1.0); BLOOD UREA NITROGEN 5 MG/DL (7-18); BUN/CREATININE RATIO 5.3 (10.0-20.0); CALCIUM 8.5 MG/DL (8.5-10.1); CHLORIDE 109 MMOL/L (99-107); CREATININE 0.94 MG/DL (0.40-0.90); GLUCOSE 113 MG/DL (70-104); POTASSIUM 3.6 MMOL/L (3.5-5.1); SODIUM 145 MMOL/L (135-145); TOTAL CARBON DIOXIDE 28.3 MMOL/L (24-32); TOTAL PROTEIN 5.2 G/DL (6.4-8.2); eCRCL 77 ML/MIN; eGFR 63 ML/MIN
[2024-09-30] MEDS: HYDROmorphone inj. 0.5 MG/0.5 ML DISP.SYRIN IV PRN (10:38)
--- NOTE | 2024-09-30 12:40 | PROGRESS NOTE ---
Progress Note - Angio Providers to CC ~ Angio Progress Note: After explaining risks benefits alt of Left thigh aspiration with patient, informed consent disclosed. Surg time out performed and US guided bedside aspiration of pocket produced dark bloody fluid. Total volume approx 8cc sent to lab for analysis. This may be early infection of a chronic seroma/hematoma perhaps. Since there is only a small shaun fluid component to the hematoma, eventually this may require open lavage if infection not cleared by IV abx. JOHN MELENDEZ MD Sep 30, 2024 12:40
[2024-09-30] MEDS: diazepam inj 5 MG/ML inj. IV PRN (14:46)
--- NOTE | 2024-09-30 16:53 | RADIOLOGY REPORT ---
Ultrasound-guided left thigh hematoma aspiration HISTORY: Suspected hematoma seroma or abscess medial anterior left proximal thigh. After explanation of the above procedure and informed consent, patient was prepped and draped in usual sterile fashion. Ultrasound guidance and a 5 [place] [employer] catheter was used to access a hypoechoic somewhat ill-defined fluid collection in the medial anterolateral left thigh. Only a scant amount of bloody fluid was obtained with total volume 8 cc sent to laboratory for analysis. There was no evidence of shaun pus. It appears the majority of the hypoechoic collection is nonliquid/semisolid. A total of 5 cc 1% lidocaine solution used for local anesthesia. IMPRESSION: Suspected semisolid medial left thigh hematoma. No evidence of pus although sample sent to laboratory for analysis.
[2024-09-30] MEDS: VANCOMYCIN LEVEL IV ONE (18:07)
--- NOTE | 2024-09-30 18:07 | PROGRESS NOTE ---
Daily Progress Note Providers to CC ~ Antibiotic Timeout Antibiotic Ordered?: Yes Subjective Dr. Lozada interventional radiologist aspirated the left thigh fluid collection that was discovered to be a hematoma or seroma and it is recommended that the patient goes for an open irrigation. I spoke to Dr. Jarrett who recommended since this is deep that orthopedic surgery performed the procedure in the OR Objective Vital Signs Date Time Temp Pulse Resp B/P (MAP) Pulse Ox O2 Delivery O2 Flow Rate FiO2 09/30/24 14:10 16 09/30/24 11:50 76 121/78 (92) 97 Room Air 09/30/24 10:00 97.1 Result Diagram: 09/30/24 0841 09/30/24 0841 Gen. No acute distress alert and oriented 4 Lungs clear to ascultation bilaterally, no wheezes rales or rhonchi appreciated Heart normal sinus rhythm no murmurs rubs or clicks noted Abdomen soft nontender bowel sounds are normoactive Lower extremities no clubbing cyanosis, nor edema appreciated bilaterally Coagulation Studies Laboratory Tests Test 09/24/24 19:45 Prothrombin Time 10.9 SECONDS (9.0-12.0) INR International Normalized Ratio 1.1 INR Activated Partial Thromboplast Time 27 SECONDS (22-32) Coagulation Comments Problem\Assessment\Plan 48 years old female with history of recurrent left thigh infection and prior multiple surgeries, presented initially to [facility] for increasing pain and swelling of the left thigh. * Left thigh abscess : Surgery has been consulted. Dr. Vidal recommneds IR consult, continue IV antibiotics. Left thigh abscess drainage done by IR on coming Friday. Dose of pain medication increased today 09/30: Dr. Lozada interventional radiologist aspirated the left thigh fluid collection that was discovered to be a hematoma or seroma and it is recommended that the patient goes for an open irrigation. I spoke to Dr. Jarrett who recommended since this is deep that orthopedic surgery performed the procedure in the OR- left voicemail for Dr. Regan * HTN: Continue lisinopril 20 mg and prazosin 1 mg p.o. blood pressure is under acceptable control * Schizophrenia/bipolar disorder: Continue aripiprazole and buspirone * History of GERD: Continue omeprazole * Insomnia/depression: Continue trazodone * History of hep C: Has been treated with sofosbuvir-velpatasvir. Deferred to outpatient follow up. * Code status: She wishes to be full code * Expected length of stay 2-3 days * Hypokalemia we will do the replacement of potassium as per protocol * Agitation/anxiety-Valium started Date of Service: Sep 30, 2024 Billing Provider: JUDY SINGH DO Common Visit Codes: 07564-OECNUANOIX INP/OBS CARE(HIGH) JUDY SINGH DO Sep 30, 2024 18:07
[2024-10-01 05:00] VITALS: BP 112/62; PULSE 59; RESP 17; TEMP 98; O2SAT 92
[2024-10-01 06:54] LABS: BASOPHILS % (AUTO) 0.6 % (0-1); EOSINOPHILS # (AUTO) 0.3 X10'3 (0-0.9); HEMATOCRIT 27.9 % (35.0-45.0); HEMOGLOBIN 9.4 g/dl (12.0-16.0); LYMPHOCYTES # (AUTO) 1.1 X10'3 (1.1-4.8); LYMPHOCYTES % (AUTO) 14.6 % (21-51); MEAN CORPUSCULAR HEMOGLOBIN 30.6 PG (27.0-31.0); MEAN CORPUSCULAR HGB CONC 33.7 g/dL (33.0-36.5); MEAN CORPUSCULAR VOLUME 90.8 FL (78-98); MEAN PLATELET VOLUME 7.9 FL (7.4-10.4); MONOCYTES # (AUTO) 0.5 X10'3 (0-0.9); MONOCYTES % (AUTO) 6.3 % (2-12); NEUTROPHILS # (AUTO) 5.5 X10'3 (1.8-7.7); NEUTROPHILS % (AUTO) 74.5 % (42-75); PLATELET COUNT 358 X10'3 (140-440); RED BLOOD COUNT 3.07 X10'6 (4.20-5.60); RED CELL DISTRIBUTION WIDTH 15.2 % (11.5-14.5); WHITE BLOOD COUNT 7.4 X10'3 (4.5-11.0)
[2024-10-01 07:12] LABS: ALANINE AMINOTRANSFERASE 15 U/L (12-78); ALBUMIN 1.8 G/DL (3.4-5.0); ALBUMIN/GLOBULIN RATIO 0.4 (1.1-1.5); ALKALINE PHOSPHATASE 63 IU/L (46-116); ANION GAP 9 (8-16); ASPARTATE AMINO TRANSFERASE 19 U/L (10-37); BILIRUBIN,TOTAL 0.3 MG/DL (0.1-1.0); BLOOD UREA NITROGEN 7 MG/DL (7-18); BUN/CREATININE RATIO 7.1 (10.0-20.0); CALCIUM 8.8 MG/DL (8.5-10.1); CHLORIDE 108 MMOL/L (99-107); CREATININE 0.99 MG/DL (0.40-0.90); GLUCOSE 104 MG/DL (70-104); POTASSIUM 3.3 MMOL/L (3.5-5.1); SODIUM 145 MMOL/L (135-145); TOTAL CARBON DIOXIDE 28.4 MMOL/L (24-32); TOTAL PROTEIN 5.9 G/DL (6.4-8.2); eCRCL 74 ML/MIN; eGFR 59 ML/MIN
[2024-10-01 08:00] VITALS: RESP 18; O2SAT 98
[2024-10-01 08:32] VITALS: BP_SYST 112; PULSE 63
[2024-10-01] MEDS: VANCOMYCIN LEVEL IV ONE (09:31)
[2024-10-01] MEDS ORDERED: magnesium sulf-water 4G/100mL 100 ML IV PRN (09:40)
[2024-10-01] MEDS ORDERED: magnesium sulf-water 2g/50mL 50 ML IV PRN (09:40)
[2024-10-01] MEDS ORDERED: potassium Cl 40MEQ/1/2NS 520ml 520 ML IV PRN (09:40)
[2024-10-01] MEDS ORDERED: potassium Cl 20 mEq SR tablet PO PRN (09:40)
[2024-10-01] MEDS ORDERED: magnesium Cl slow-release 64mg tablet PO PRN (09:40)
[2024-10-01] MEDS: potassium Cl 20 mEq SR tablet PO PRN (09:59)
[2024-10-01] MEDS ORDERED: LACT1CAP76 PO (10:51)
[2024-10-01] MEDS ORDERED: POTA-207 PO (10:51)
[2024-10-01] MEDS ORDERED: AMOX-580 PO (10:51)
[2024-10-01] MEDS: HYDROmorphone/PF 0.2 MG/ML SYRINGE IV PRN (11:10)
[2024-10-01] MEDS ORDERED: HYDR-3972 PO (11:29)
[2024-10-01 12:10] VITALS: RESP 18
[2024-10-01] MEDS: vancomycin/NS 1 GM ADD-VANTAGE 250 ML X 1 DOSE IV SCH (12:54)
[2024-10-01] MEDS: LORazepam 1 MG tablet PO ONE (15:10)
--- NOTE | 2024-10-01 23:07 | DISCHARGE SUMMARY ---
Discharge Summary Providers to CC ~ Discharge Summary Admission Diagnosis: left thigh abscess Hospital Course DATE OF ADMISSION: 09/24/2024 DATE OF DISCHARGE: 10/01/2024 Discharge Diagnosis\\Comment: Left thigh seroma versus hematoma, hypertension, schizophrenia bipolar disorder, GERD, history of hepatitis-C, hypokalemia Operations\\Procedures: Ultrasound-guided bedside aspiration, bedside drainage Consultants: Dr Bryce Lozada interventional radiologists, Dr Diogenes Jarrett general surgeon Complications: None Condition on DC: Stable New Medications: Amox Tr/Potassium Clavulanate 875/125 MG (Augmentin 875/125 MG) 875 Mg-125 Mg Tablet 1 TAB PO BID, #14 TAB Lactobacillus Casei/Folic Acid (Restora Rx Capsule) 60 Mg (200 Billion Cell)- 1.25 Mg Capsule 1 CAP PO DAILY for 30 Days, #30 CAP 0 Refills Potassium Chloride* (K-Dur*) 20 Meq Tab.prt.sr 1 TAB PO DAILY, #30 TAB Hydrocodone Bit/Acetaminophen (Hydrocodon-Acetaminophn 10-325 tablet) 10mg- 325mg Tablet 1 TAB PO Q4H PRN for SEVERE PAIN 7-10, #18 TAB Continued Medications: Aripiprazole (Aripiprazole) 10 Mg Tablet 1 TAB PO DAILY Buspirone HCl (Buspirone HCl) 15 Mg Tablet 1 TAB PO BID Lisinopril (Lisinopril) 10 Mg Tablet 1 TAB PO DAILY Omeprazole (Omeprazole) 20 Mg Capsule.dr 1 CAP PO DAILY Prazosin HCl (Prazosin HCl) 5 Mg Capsule 1 CAP PO HS Sofosbuvir/Velpatasvir (Sofosbuvir-Velpatasvir 400-100) 400 Mg-100 Mg Tablet 1 TAB PO DAILY for 30 Days, #30 Trazodone HCl (Trazodone HCl) 100 Mg Tablet 1 TAB PO HS Discharge Summary: The patient was admitted by Dr.Arvind Duncan with the following HPI:"48 year old female trasferred from [facility] for evaluation of left thigh pain and swelling. Patient reports she has had multiple surgeries on this leg and it still keeps recurring . Patient is emotional and crying and states she is afraid of loosing her leg. Reports fever but did not check her temprature. Patient has a history of hypertension, chronic meth use, bipolar disorder and sc hizoaffective disorder. She denies having any vomiting but endorses nausea. Denies having any other symptoms including chest pain palpitations orthopnea PND ankle edema or any focal neurological signs. A CT scan of the pelvis with contrast done at [facility] revealed large abscess of the medial left thigh with maximum length of 11 cm and transfer dimension of 7.2 cm. There is multiloculated fluid collection. Dr. Vidal has been consulted by Dr. Dyer." Dr. Jarrett surgeon evaluated the patient and recommended interventional radiology drain the presumed abscess Dr. Bryce Lozada interventional radiologist did a bedside aspiration on the and was only able to drain a scant amount of dark red blood that has sent for culture and sensitivity and recommended that Dr. Jarrett take the patient OR for lavage- Dr. Jarrett recommended that Orthopedics performed the procedure as this is a deep pocket of fluid and I spoke with Dr. Clifford who recommended that is if a procedure needs to be done this could be done in the outpatient setting when I went and examined the patient on the day discharge I was able to drain the region surrounding the puncture site and a proximally 30 cc of bloody fluid with some straw-colored fluid were drained. The patient was discharged with a one-week course of Augmentin patient had received IV Zosyn and IV vancomycin while hospitalized. The patient's white blood [place] [address]22 on admission to 7400 on day discharge and the patient has been afebrile since the in the jai alai player of the the patient has a temperature of a 100.4. The patient has hypertension and the patient's blood pressure was under acceptable control during the entire hospitalization the patient remains on lisinopril. The patient has hypokalemia and was on the potassium replacement protocol on the her serum potassium was 2.9 this improved significantly on day discharge however was 3.3 and the patient was discharged with a prescription of KCl 20 mEq daily with the recommendations repeat a metabolic panel in 1-2 weeks. The patient is continued on her depression and bipolar medications. Gen. No acute distress alert and oriented 4 Lungs clear to ascultation bilaterally, no wheezes rales or rhonchi appreciated Heart normal sinus rhythm no murmurs rubs or clicks noted Abdomen soft nontender bowel sounds are normoactive Lower extremities no clubbing cyanosis, nor edema appreciated on the right, semi firm semi fluctuant region approximately 20 x 30 cm medial left thigh. The patient felt ready to be discharged and was medically cleared to be discharged on 10/01/2024 with recommendations follow up with the outpatient wound care in case management will arrange for outpatient wound care follow up The patient was seen and evaluated on day of discharge. Time spent on discharge 45 minutes *Problems/Diagnosis: (1) Hypokalemia Total Time Spent on D/C: > 30 Minutes Date of Service: Oct 01, 2024 Billing Provider: JUDY SINGH DO Common Visit Codes: 30061-UVH/OBS DISCH DAY >30min JUDY SINGH DO Oct 01, 2024 23:07
[2024-10-02] MEDS ORDERED: VANCOMYCIN LEVEL IV ONE (10:30)
== END 2024-10-01 15:45 | disposition home or self-care (01) | DRG 720 ==
LOC: ER 16:53 → ED HOLD 18:12 → ORTHO 4S 22:36
PROVIDERS: ADMIT Internal Medicine; ATTEND Internal Medicine
PROC: 05HC33Z Insertion of Infusion Device into Left Basilic Vein, Percutaneous Approach (ICD-10-PCS; 2024-09-27)
PROC: B54NZZA Ultrasonography of Left Upper Extremity Veins, Guidance (ICD-10-PCS; 2024-09-27)
PROC: 0Y9D3ZZ Drainage of Left Upper Leg, Percutaneous Approach (ICD-10-PCS; principal; 2024-09-30)
DX: A41.9 Sepsis, unspecified organism (principal); F25.9 Schizoaffective disorder, unspecified; L02.416 Cutaneous abscess of left lower limb; F15.90 Other stimulant use, unspecified, uncomplicated; S70.12XA Contusion of left thigh, initial encounter; X58.XXXA Exposure to other specified factors, initial encounter; G43.909 Migraine, unspecified, not intractable, without status migrainosus; I10 Essential (primary) hypertension; F31.9 Bipolar disorder, unspecified; F41.9 Anxiety disorder, unspecified; E87.6 Hypokalemia; Z87.891 Personal history of nicotine dependence; Z88.8 Allergy status to other drugs, medicaments and biological substances; Z91.018 Allergy to other foods; Y93.89 Activity, other specified; Y92.89 Other specified places as the place of occurrence of the external cause; Y99.8 Other external cause status
CPT/HCPCS: 10030; 36410; 36415; 76937; 80048; 80053; 80202; 83605; 83735; 84145; 85025; 85610; 85651; 85730; 87040; 87070; 87081; 93005; 96365; 96375; 97161; 97530; 99291; A4333; A6253; A6258; A6446; A6449; C1751; G0378; J1171; J2543; J3360; J3370; J3372; J3490; J7030; J7040